=== PATIENT | female | born 1965 | race Caucasian/White ===

== ENCOUNTER 2020-09-14 15:34 | Emergency (ER) | payer BC, MEDICAID, OTHER ==
[~2020-09-14] VITALS: Ht 165.1 cm; Wt 70.0 kg
[2020-09-14 15:34] VITALS: BP 118/77
--- NOTE | 2020-09-14 16:02 | PHYS DOC ---
General Adult EDM: Chief Complaint: COUGH HPI: HPI: Patient is a 35-year-old female coming in for headache, cough, chest tightness since this morning. Took some Tylenol at home. Has a history of asthma and has been using her inhaler. Has not had a flu vaccine this year. No GI complaints Review of Systems: Review of Systems: Constitutional: Fever Eyes: Denies change in visual acuity HENT: Denies nasal congestion or sore throat Respiratory: Cough and chest tightness Cardiovascular: Denies chest pain or edema GI: Denies abdominal pain, nausea, vomiting, bloody stools or diarrhea : Denies dysuria Musculoskeletal: Denies back pain or joint pain Integument: Denies rash Neurologic: Denies headache, focal weakness or sensory changes Endocrine: Denies polyuria or polydipsia Lymphatic: Denies swollen glands Psychiatric: Denies depression or anxiety Allergies: Allergies: Allergies Coded Allergies Type Severity Reaction Last Updated Verified Influenza Virus Vaccines Allergy Unknown 09/14/20 Yes Penicillins Allergy Unknown 09/14/20 Yes codeine Allergy Unknown 09/14/20 Yes meperidine Allergy Unknown 09/14/20 Yes Physical Exam: PE: Constitutional: Well developed, well nourished, no acute distress, non-toxic appearance. [] HENT: Normocephalic, atraumatic, bilateral external ears normal, oropharynx moist, no oral exudates, nose normal. [] Eyes: PERRLA, EOMI, conjunctiva normal, no discharge. [] Neck: Normal range of motion, no tenderness, supple, no stridor. [] Cardiovascular:Heart rate regular rhythm, no murmur [] Lungs & Thorax: Bilateral breath sounds clear to auscultation [] Abdomen: Bowel sounds normal, soft, no tenderness, no masses, no pulsatile masses. [] Skin: Warm, dry, no erythema, no rash. [] Back: No tenderness, no CVA tenderness. [] Extremities: No tenderness, no cyanosis, no clubbing, ROM intact, no edema. [] Neurologic: Alert and oriented X 3, normal motor function, normal sensory function, no focal deficits noted. [] Psychologic: Affect normal, judgement normal, mood normal. [] EKG: EKG: [] Radiology/Procedures: Radiology/Procedures: [] Heart Score: Risk Factors: Risk Factors: DM, Current or recent (<one month) smoker, HTN, HLP, family history of CAD, obesity. Risk Scores: Score 0 - 3: 2.5% MACE over next 6 weeks - Discharge Home Score 4 - 6: 20.3% MACE over next 6 weeks - Admit for Clinical Observation Score 7 - 10: 72.7% MACE over next 6 weeks - Early Invasive Strategies Course & Med Decision Making: Course & Med Decision Making Pertinent Labs and Imaging studies reviewed. (See chart for details) [] Dragon Disclaimer: Dragon Disclaimer: This electronic medical record was generated, in whole or in part, using a voice recognition dictation system. Departure Departure: Impression: Primary Impression: Upper respiratory infection Disposition: 01 DC HOME SELF CARE/HOMELESS Condition: STABLE Referrals: PCP,UNKNOWN (PCP) Patient Instructions: Upper Respiratory Infection, Adult Scripts Prednisone (PREDNISONE) 50 Mg Tablet 1 TAB PO DAILY for asthma for 5 Days, #5 TAB You received this medication in the emergency room today. You will starting your next dose tomorrow. Prov: ZAIN RUBIO MD 09/14/20 ZAIN RUBIO MD Sep 14, 2020 16:02
[2020-09-14 16:49] LABS: INFLUENZA A PATIENT NEGATIVE (NEGATIVE); INFLUENZA B PATIENT NEGATIVE (NEGATIVE)
[2020-09-14] MEDS ORDERED: PRED50TA PO (17:02)
--- NOTE | 2020-09-14 17:03 | RAD ---
Examination: CHEST AP ONLY History: Reason: chest tightness / Spl. Instructions: / History: Comparison: None. Findings: AP portable upright frontal view of the chest was obtained. The cardiomediastinal silhouette is normal. Lungs are clear. There is no pneumothorax. No pleural effusion is appreciated. No acute bone abnormality. IMPRESSION: No acute cardiopulmonary process. Electronically signed by: Chriss Win MD (09/14/2020 5:00 PM) [id number]
== END 2020-09-14 17:03 | disposition home or self-care (01) ==
LOC: ER 15:34
DX: J06.9 Acute upper respiratory infection, unspecified (principal); R51.9 Headache, unspecified; R05 Cough; R07.89 Other chest pain; J45.909 Unspecified asthma, uncomplicated; Z88.0 Allergy status to penicillin; Z88.5 Allergy status to narcotic agent; Z88.8 Allergy status to other drugs, medicaments and biological substances
CPT/HCPCS: 71045; 87804; 99284

== ENCOUNTER 2020-10-21 07:06 | Emergency (ER) | payer MEDICAID ==
[~2020-10-21] VITALS: Ht 165.1 cm; Wt 75.9 kg
[~2020-10-21 07:06] MED LIST: PRED50TA PO
--- NOTE | 2020-10-21 07:12 | PHYS DOC ---
Past History Past Medical History: Asthma, Hypothyroid Past Surgical History: Appendectomy, Hysterectomy Alcohol Use: Occasionally Adult General HPI HPI Patient is a 55-year-old female who complains of presyncope. Onset was approximately 1 hour prior to arrival. Patient was bearing down trying to use toilet but could not, reports standing up from seated position and got lightheaded and weak. She did not fall, no loss of consciousness but symptoms which lasted approximately 1 minute concerned her prompting her to call EMS. States she has been exposed to known Covid positive individual, individual was at patient's house majority of the last week and subsequently found out he was Covid positive approximately 7 days ago and is currently hospitalized and intubated. Patient concerned given this exposure, was tested for Covid herself with results pending, reports URI-like symptoms such as congestion, rhinorrhea, a nonproductive cough, and postnasal drip in addition to lost of taste and smell. Reports subjective fevers and chills without any other concerning symptoms such as fever greater than 100.4, syncope, neck stiffness, chest pain, shortness of breath, urinary symptoms. She spoke with her primary care physician after getting tested earlier this week and was placed on a prednisone burst given history of severe asthma Review of Systems Review of Systems Fourteen body systems of review of systems have been reviewed. See HPI for pertinent positives and negative responses, other bob all other systems are negative, non-pertinent or non-contributory Allergies Allergies Allergies Coded Allergies Type Severity Reaction Last Updated Verified Influenza Virus Vaccines Allergy Unknown 09/14/20 Yes Penicillins Allergy Unknown 09/14/20 Yes codeine Allergy Unknown 09/14/20 Yes meperidine Allergy Unknown 09/14/20 Yes Physical Exam Physical Exam General: Appears well, non toxic, and comfortable Skin: Warm, dry. Normal for ethnicity. HEENT: Atraumatic. PERRLA. Rhinorrhea and congestion. Nasal turbinates boggy b/l. Dry mucous membranes. Uvula midline. Maintaining secretions. No phonation changes. Neck: Trachea midline. Normal ROM. No stridor. Respiratory: Normal WOB. CTAB w/o w/r/r. No tachypnea. Cardiovascular: Regular rate and rhythm. Normal peripheral perfusion. Abdomen: Soft. Non tender. No distension. Back: Normal ROM. Musculoskeletal: No swelling or deformity. Neuro: Alert and oriented x 4. MAEE. Lymph: No cervical LAD. Psych: Normal affect and mood. EKG EKG EKG ordered and interpreted by myself at 0732 hrs. as sinus rhythm at 66 bpm, unremarkable intervals, no axis deviation, no acute ischemic findings, no STEMI Radiology/Procedures Radiology/Procedures XR CHEST 1V Clinical indications: Weakness comparison: September 14, 2020. Findings: Old granulomatous disease is seen. No acute lung infiltrate or pleural effusion or pulmonary edema or lung mass or pneumothorax is seen. The heart size, pulmonary vasculature, mediastinum and both marybel are unremarkable. Impression: No acute radiographic abnormality is seen. Electronically signed by: Colin Morales MD (10/21/2020 8:15 AM) [id number] Heart Score HEART Score for Chest Pain: HEART Score for Chest Pain Response (Comments) Value History Slighlty/Non-Suspicious 0 ECG Normal 0 Age >45 - < 65 1 Risk Factors 1 or 2 Risk Factors 1 Troponin < Normal Limit 0 Total 2 Risk Factors: Risk Factors: DM, Current or recent (<one month) smoker, HTN, HLP, family history of CAD, obesity. Risk Scores: Risk Factors: DM, Current or recent (<one month) smoker, HTN, HLP, family history of CAD, obesity. Course & Med Decision Making Course & Med Decision Making Presentation most consistent with Viral Syndrome. Based on vitals and exam they are nontoxic and stable for discharge. Given History and Exam I have a lower suspicion for: Emergent CardioPulmonary causes [such as Acute Asthma or COPD Exacerbation, acute Heart Failure or exacerbation, PE, PTX, atypical ACS, PNA]. Emergent Otolaryngeal causes [such as DRINKING WATER TECHNICIAN, RPA, Ludwigs, Epiglottitis, EBV]. Regarding Emergent Travel or Immunosuppressive related infectious: I have a low suspicion for acute HIV. Patient does NOT meet our current criteria to test for COVID-19. Strict return precautions were discussed with good understanding by patient with all questions and concerns addressed prior to ER departure Lill[place]on Disclaimer Dragon Disclaimer This electronic medical record was generated, in whole or in part, using a voice recognition dictation system. Departure Departure: Impression: Primary Impression: Viral syndrome Additional Impressions: Person under investigation for COVID-19 Leukopenia Disposition: 01 DC HOME SELF CARE/HOMELESS Condition: IMPROVED Referrals: PCP,UNKNOWN (PCP) Patient Instructions: Viral Syndrome Additional Instructions: You were seen for headache, fever, body aches, and possible infection with COVID-19. Your physical exam was reassuring. Your chest x-ray was normal. You were previously tested for COVID-19 with results pending. In the meantime you need to quarantine yourself at home away from all other individuals, especially those who are elderly or have any other chronic health issues or an immunocompromised status. You should return to the ED if you develop worsening cough, shortness of breath, chest pain, or any other new or concerning symptoms. Alternate Tylenol and ibuprofen as needed for body aches and pain. If your test does come back positive you need to quarantine yourself for 10 days until symptom-free. You should make sure to drink plenty of fluids and get plenty of rest. Problem Qualifiers NATHALIE FLOR DO Oct 21, 2020 07:12
[2020-10-21] MEDS ORDERED: IV NORMAL SALINE 1,000ML 1,000 ML IV ONE ×2 (07:15→08:30)
[2020-10-21 07:44] LABS: BASO % 1 % (0-3); EOS % 1 % (0-3); HEMATOCRIT 42.5 % (36.0-47.0); HEMOGLOBIN 13.9 g/dL (12.0-15.5); LYMPH # 0.8 x10^3/uL (1.0-4.8); LYMPH % 28 % (24-48); MEAN CORPUSCULAR HEMOGLOBIN 30 pg (25-35); MEAN CORPUSCULAR HGB CONC 33 g/dL (31-37); MEAN CORPUSCULAR VOLUME 93 fL (79-100); MONO # 0.5 x10^3/uL (0.0-1.1); MONO % 15 % (0-9); NEUT # 1.6 x10^3uL (1.8-7.7); NEUT % 56 % (31-73); PLATELET COUNT 223 x10^3/uL (140-400); RED BLOOD COUNT 4.59 x10^6/uL (3.50-5.40); WHITE BLOOD COUNT 2.9 x10^3/uL (4.0-11.0)
--- NOTE | 2020-10-21 07:48 | EKG ---
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
[2020-10-21 07:54] LABS: CALCIUM 8.7 mg/dL (8.5-10.1); CREATININE 0.9 mg/dL (0.6-1.0); POTASSIUM 3.8 mmol/L (3.5-5.1)
[2020-10-21 08:01] LABS: ALBUMIN 3.6 g/dL (3.4-5.0); ALBUMIN/GLOBULIN RATIO 1.1 (1.0-1.7); TOTAL BILIRUBIN 0.3 mg/dL (0.2-1.0); TOTAL PROTEIN 6.8 g/dL (6.4-8.2)
--- NOTE | 2020-10-21 08:17 | RAD ---
XR CHEST 1V Clinical indications: Weakness comparison: September 14, 2020. Findings: Old granulomatous disease is seen. No acute lung infiltrate or pleural effusion or pulmonar y edema or lung mass or pneumothorax is seen. The heart size, pulmonary vasculature, mediastinum and both marybel are unremarkable. Impression: No acute radiographic abnormality is seen. Electronically signed by: Colin Morales MD (10/21/2020 8:15 AM) [id number]
[2020-10-21 09:55] VITALS: BP 108/72
== END 2020-10-21 10:00 | disposition home or self-care (01) ==
LOC: ER 07:06
DX: B34.9 Viral infection, unspecified (principal); D72.819 Decreased white blood cell count, unspecified; J45.909 Unspecified asthma, uncomplicated; Z90.89 Acquired absence of other organs; Z90.710 Acquired absence of both cervix and uterus
CPT/HCPCS: 36415; 71045; 80053; 84484; 85025; 93005; 96360; 96361; 99285; J7030

== ENCOUNTER 2021-10-23 15:43 | Emergency (ER) | payer MEDICAID ==
[2021-10-24] MEDS ORDERED: ONDA4TAB7 PO (00:33)
[2021-10-24] MEDS ORDERED: CIPR250T30 PO (00:33)
[2021-10-24] MEDS ORDERED: FAMO-63 PO (00:33)
== END 2021-10-23 16:07 | disposition left against medical advice (07) ==
LOC: ER 15:47
DX: R10.9 Unspecified abdominal pain (principal); Z53.21 Procedure and treatment not carried out due to patient leaving prior to being seen by health care provider

== ENCOUNTER 2021-10-23 20:23 | Emergency (ER) | payer MEDICAID ==
[~2021-10-23] VITALS: Ht 165.1 cm; Wt 75.9 kg
[2021-10-23] MEDS ORDERED: IOHEXOL 350 MG/ML 100 ML VIAL. IV ONE (20:45)
[2021-10-23] MEDS ORDERED: IV NORMAL SALINE 1,000ML 1,000 ML IV ONE (20:45)
[2021-10-23] MEDS ORDERED: ONDANSETRON PF 4 MG/2 ML VIAL. IVP ONE (20:45)
[2021-10-23] MEDS ORDERED: CONTRAST GIVEN. MC PRN (21:00)
--- NOTE | 2021-10-23 21:10 | PHYS DOC ---
Past History Past Medical History: Asthma, Hypothyroid Additional Past Medical Histor: PTSD, GRAVES (MANA DONALDSON PARAPROFESSIONAL AIDE TEACHER) Past Surgical History: Appendectomy, Hysterectomy (MANA DONALDSON PARAPROFESSIONAL AIDE TEACHER) Alcohol Use: Occasionally (MANA DONALDSON APRN) Adult General Chief Complaint Chief Complaint: ABDOMINAL PAIN HPI HPI Patient is a 56-year-old female patient with history of hypothyroidism, Graves' disease, appendectomy, hysterectomy, who presents the ED today complaining of 1 out of 10 epigastric abdominal pain with nausea and vomiting that began 2 days a go. Patient states the pain radiates to her back. Denies any chest pain or shortness of breath. Denies anything specifically exacerbating or relieving her pain. (MANA DONALDSON APRN) Review of Systems Review of Systems Constitutional: Denies fever or chills [] Eyes: Denies change in visual acuity, redness, or eye pain [] HENT: Denies nasal congestion or sore throat [] Respiratory: Denies cough or shortness of breath [] Cardiovascular: No additional information not addressed in HPI [] GI: Reports epigastric abdominal pain with nausea, denies vomiting, bloody stools or diarrhea [] : Denies dysuria or hematuria [] Musculoskeletal: Denies back pain or joint pain [] Integument: Denies rash or skin lesions [] Neurologic: Denies headache, focal weakness or sensory changes [] Endocrine: Denies polyuria or polydipsia [] All other systems were reviewed and found to be within normal limits, except as documented in this note. (MANA DONALDSON PARAPROFESSIONAL AIDE TEACHER) Current Medications Current Medications Current Medications Medications (Trade) Dose Ordered Sig/Tremaine Start Time Stop Time Status Last Admin Dose Admin Info (Do NOT chart on this entry -- for MONITORING) 1 each PRN DAILY PRN 10/23/21 21:00 10/25/21 20:59 Iohexol (Omnipaque 350 Mg/ml) 100 ml 1X ONCE 10/23/21 20:45 10/23/21 20:49 DC Ondansetron HCl (Zofran) 4 mg 1X ONCE 10/23/21 20:45 10/23/21 20:49 DC Sodium Chloride 1,000 ml @ 1,000 mls/hr 1X ONCE 10/23/21 20:45 10/23/21 21:44 (MANA DONALDSON PARAPROFESSIONAL AIDE TEACHER) Allergies Allergies Allergies Coded Allergies Type Severity Reaction Last Updated Verified Influenza Virus Vaccines Allergy Unknown 10/21/20 Yes Penicillins Allergy Unknown 10/21/20 Yes codeine Allergy Unknown 10/21/20 Yes meperidine Allergy Unknown 10/21/20 Yes (MANA DONALDSON Leslee PARAPROFESSIONAL AIDE TEACHER) Physical Exam Physical Exam Constitutional: Well developed, well nourished, no acute distress, non-toxic appearance. [] HENT: Normocephalic, atraumatic, bilateral external ears normal, oropharynx moist, no oral exudates, nose normal. [] Eyes: PERRLA, EOMI, conjunctiva normal, no discharge. [] Neck: Normal range of motion, no tenderness, supple, no stridor. [] Cardiovascular:Heart rate regular rhythm, no murmur [] Lungs & Thorax: Bilateral breath sounds clear to auscultation [] Abdomen: Bowel sounds normal, soft, mild epigastric tenderness, no masses, no pulsatile masses. [] Skin: Warm, dry, no erythema, no rash. [] Back: No tenderness, no CVA tenderness. [] Extremities: No tenderness, no cyanosis, no clubbing, ROM intact, no edema. [] Neurologic: Alert and oriented X 3, normal motor function, normal sensory function, no focal deficits noted. [] Psychologic: Affect normal, judgement normal, mood normal. [] (PRESTONMANA KYLE PARAPROFESSIONAL AIDE TEACHER) Current Patient Data Vital Signs Vital Signs Date Time Temp Pulse Resp B/P (MAP) Pulse Ox O2 Delivery O2 Flow Rate FiO2 10/23/21 20:38 98.6 73 18 100/72 (81) 92 Room Air (MENDOZAMANA Leslee PARAPROFESSIONAL AIDE TEACHER) EKG EKG [address] Lopez sinus rhythm heart rate 57 no STEMI [] (MANA DONALDSON PARAPROFESSIONAL AIDE TEACHER) Radiology/Procedures Radiology/Procedures [] (MANA DONALDSON PARAPROFESSIONAL AIDE TEACHER) Heart Score C/O Chest Pain: N/A Risk Factors: Risk Factors: DM, Current or recent (<one month) smoker, HTN, HLP, family history of CAD, obesity. Risk Scores: Risk Factors: DM, Current or recent (<one month) smoker, HTN, HLP, family history of CAD, obesity. (MANA DONALDSON PARAPROFESSIONAL AIDE TEACHER) Course & Med Decision Making Course & Med Decision Making Pertinent Labs and Imaging studies reviewed. (See chart for details) This is a 56-year-old female patient presented to the ED today with complaints of epigastric abdominal pain that began 2 days ago. Also complaining of nausea. [address] Jensen pending labs and CT chest, abd and pelvis. (MANA DONALDSON APRN) Course & Med Decision Making See [facility] chart for details prior shift change. (KATHY LOPEZ MD) Dragon Disclaimer Dragon Disclaimer This electronic medical record was generated, in whole or in part, using a voice recognition dictation system. (MANA DONALDSON APRN) Departure Departure: Referrals: PCP,UNKNOWN (PCP) Dragon Disclaimer This chart was dictated in whole or in part using Voice Recognition software in a busy, high-work load, and often noisy Emergency Department environment. It may contain unintended and wholly unrecognized errors or omissions. (KATHY LOPEZ MD) Attending Signature Attending Signature I have participated in the care of this patient and I have reviewed and agree with all pertinent clinical information above including history, exam, and recommendations. (KATHY LOPEZ MD) MANA DONALDSON APRN Oct 23, 2021 21:10 KATHY LOPEZ MD Oct 23, 2021 22:14
[2021-10-23 21:28] LABS: BASO % 0 % (0-3); EOS % 1 % (0-3); HEMATOCRIT 39.1 % (36.0-47.0); HEMOGLOBIN 12.8 g/dL (12.0-15.5); LYMPH # 0.8 x10^3/uL (1.0-4.8); LYMPH % 22 % (24-48); MEAN CORPUSCULAR HEMOGLOBIN 31 pg (25-35); MEAN CORPUSCULAR HGB CONC 33 g/dL (31-37); MEAN CORPUSCULAR VOLUME 93 fL (79-100); MONO # 0.4 x10^3/uL (0.0-1.1); MONO % 12 % (0-9); NEUT # 2.3 x10^3uL (1.8-7.7); NEUT % 65 % (31-73); PLATELET COUNT 184 x10^3/uL (140-400); RED BLOOD COUNT 4.18 x10^6/uL (3.50-5.40); RED CELL DISTRIBUTION WIDTH 13.2 % (11.5-14.5); WHITE BLOOD COUNT 3.5 x10^3/uL (4.0-11.0)
[2021-10-23 21:46] LABS: CALCIUM 8.3 mg/dL (8.5-10.1); CREATININE 0.9 mg/dL (0.6-1.0); GFR 64.8; POTASSIUM 3.6 mmol/L (3.5-5.1)
[2021-10-23 21:58] LABS: ALBUMIN 3.6 g/dL (3.4-5.0); ALBUMIN/GLOBULIN RATIO 1.3 (1.0-1.7); MAGNESIUM 2.3 mg/dL (1.8-2.4); TOTAL BILIRUBIN 0.4 mg/dL (0.2-1.0); TOTAL PROTEIN 6.4 g/dL (6.4-8.2)
--- NOTE | 2021-10-23 22:58 | RAD ---
INDICATION: Reason: OMNI 350,100ML IV.Epigastric pain / Spl. Instructions: / History: . COMPARISON: None. TECHNIQUE: Axial CT images obtained through the chest, abdomen and pelvis with contrast with angiographic images processed with three-dimensional technique One or more of the following individualized dose reduction techniques were utilized for this examinat ion: 1. Automated exposure control; 2. Adjustment of the mA and/or kV according to patient size; 3 . Use of iterative reconstruction technique. FINDINGS: Mild dependent airspace opacities which can be seen with atelectasis. There is some scattered calcific atherosclerosis. Portion of the ascending thoracic aorta is obscured secondary to motion but no aneurysm or dissection flap in the visualized portions of the thoracic aorta but a portion is not well evaluated secondary to motion. No abdominal aortic aneurysm or dissection flap is seen. Liver is low density. Nonspecific but can be seen with fatty infiltration. No peripancreatic fluid collection. Heterogenous enhancement of the spleen limits evaluation. No hydronephrosis. Urinary bladder has minimal urine within it. Urinary bladder wall is mildly prominent. Colonic diverticulosis. Appendix not well seen. Degenerative changes the spine with multilevel central canal and neural foraminal stenosis. IMPRESSION: * Portion of ascending thoracic aorta is obscured by motion but no aneurysm or dissection flap in th e visualized portions of the aorta. * No evidence of bowel obstruction. * Urinary bladder is not very distended with some mild prominence the wall. Could be from lack of di stention but would correlate with symptoms to ensure that there is not a pathologic cause such as mil d cystitis Electronically signed by: Riley Mehta MD (10/23/2021 10:56 PM) [id number]
[2021-10-24 00:04] LABS: BARBITURATES NEG (NEG); BENZODIAZEPINES NEG (NEG); CANNABINOIDS NEG (NEG); COCAINE NEG (NEG); METHADONE NEG (NEG); OPIATES POS (NEG); PHENCYCLIDINE NEG (NEG)
[2021-10-24 00:05] LABS: AMPHETAMINE/METHAMPHETAMINE NEG (NEG)
[2021-10-24 00:09] LABS: BACTERIA,URINE FEW /HPF (0-FEW); BILIRUBIN,URINE NEG (NEG); CLARITY,URINE CLEAR; COLOR,URINE YELLOW; GLUCOSE,URINE NEG (NEG); NITRITE,URINE NEG (NEG); RBC,URINE 0 /HPF (0-2); SQUAMOUS EPITHELIAL CELL,UR FEW /LPF; UROBILINOGEN,URINE 0.2 mg/dL (0.2 mg/dL)
[2021-10-24] MEDS ORDERED: CIPR250T30 PO (00:33)
[2021-10-24] MEDS ORDERED: ONDA4TAB7 PO (00:33)
[2021-10-24] MEDS ORDERED: FAMO-63 PO (00:33)
[2021-10-24 00:45] VITALS: BP 110/67
[2021-10-24] MEDS ORDERED: FAMOTIDINE 20 MG TABLET PO ONE (00:45)
[2021-10-24] MEDS ORDERED: CIPROFLOXACIN HCL 500 MG TABLET PO ONE (00:45)
--- NOTE | 2021-10-24 07:04 | EKG ---
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
== END 2021-10-24 00:46 | disposition home or self-care (01) ==
LOC: ER 20:23
DX: K29.70 Gastritis, unspecified, without bleeding (principal); N39.0 Urinary tract infection, site not specified; B34.9 Viral infection, unspecified; E03.9 Hypothyroidism, unspecified; J45.909 Unspecified asthma, uncomplicated; Z20.822 Contact with and (suspected) exposure to COVID-19; Z90.89 Acquired absence of other organs; Z90.710 Acquired absence of both cervix and uterus; Z88.7 Allergy status to serum and vaccine; Z88.0 Allergy status to penicillin; Z88.5 Allergy status to narcotic agent; Z88.8 Allergy status to other drugs, medicaments and biological substances
CPT/HCPCS: 71275; 74174; 74175; 80053; 80307; 81001; 83690; 83735; 83880; 84484; 85025; 87086; 87426; 93005; 96361; 96374; 99285; C9803; J2405; J7030; Q9967; U0003